=== PATIENT | male | born 1965 | race Caucasian/White ===

== ENCOUNTER → 2019-04-09 14:32 | Outpatient (CLI) | payer OTHER, SELFPAY ==
--- NOTE | 2019-04-09 | DI.RAD.S_ITS ---
PROCEDURE: XR CERVICAL SPINE 4V OR 5V INDICATIONS: neck pain/tingling in arms TECHNIQUE: 7 views of the cervical spine were acquired. COMPARISON: None. FINDINGS: Bones: No fractures or dislocations to the T1 level. No suspicious bony lesions. There is normal range of motion between flexion and extension, with preserved normal bony alignment. Multilevel disc narrowing, most notably at the C5-C6 and C6-C7 levels. Trace multilevel retrolisthesis. Mild multilevel uncovertebral hypertrophy. Soft tissues: Prevertebral soft tissues are normal in thickness. IMPRESSION: Multilevel degenerative change Dictated by: Charles ELLIOTT Interpreted: Jovanny Murrieta MD on 04/09/2019 at 17:42 Approved by: Jovanny Murrieta M.D. on 04/09/2019 at 17:53
== END ==
PROVIDERS: PCP Family Medicine; Visit Provider Family Medicine
DX: M54.2 Cervicalgia (principal); R20.2 Paresthesia of skin; M47.812 Spondylosis without myelopathy or radiculopathy, cervical region
CPT/HCPCS: 72050

== ENCOUNTER → 2019-04-17 12:51 | Outpatient (CLI) | payer OTHER, SELFPAY | PROVIDERS: PCP Family Medicine; Visit Provider Family Medicine | DX: R20.2 Paresthesia of skin (principal) | CPT/HCPCS: 95885; 95886; 95909 ==

== ENCOUNTER 2019-05-12 16:35 | Emergency (ER) | payer OTHER, SELFPAY ==
[2019-05-12 16:41] VITALS: BP 132/88; PULSE 98; RESP 16; TEMP 37.1; O2SAT 99; BMI 28.8
--- NOTE | 2019-05-12 16:45 | DI.RAD.S_ITS ---
PROCEDURE: XR CHEST 1V INDICATIONS: chest pain TECHNIQUE: One view of the chest was acquired. COMPARISON: [facility], , CHEST 2 VIEW, 09/24/2008, 11:31. FINDINGS: Surgical changes and devices: None. Lungs and pleura: Lungs are clear. No pleural effusions or pneumothorax. Mediastinum: Mediastinal contours appear normal. Heart size is normal. Bones and chest wall: No suspicious bony lesions. Overlying soft tissues appear unremarkable. IMPRESSION: No evidence acute pulmonary process. Dictated by: Syd Heck M.D. on 05/12/2019 at 17:13 Approved by: Syd Heck M.D. on 05/12/2019 at 17:13
[2019-05-12 16:50] LABS: Add Manual Diff / Slide Review NO; Basophils Absolute Auto 0 /uL (0-100); Basophils Percent Auto 0.7 % (0-2); Eosinophils Absolute Auto 100 /uL (0-450); Eosinophils Percent Auto 2.4 % (2-4); Hemoglobin 14.8 g/dL (13.5-17.5); Lymphocytes Absolute Auto 1800 /uL (1100-4500); Lymphocytes Percent Auto 31.9 % (25-40); Mean Corpuscular HGB Conc 35.3 % (30-36); Mean Corpuscular Hemoglobin 32.8 PG (26-34); Mean Corpuscular Volume 92.9 fL (80-100); Monocytes Absolute Auto 400 /uL (0-900); Neutrophils Absolute Auto 3300 /uL (1500-7000); Platelet Count 175 X10^3/uL (150-400); Red Blood Cell Count 4.52 X10^6/uL (4.5-5.9); Red Cell Distribution Width 12.6 % (11.6-14.8); White Blood Cell Count 5.8 X10^3/uL (4.5-11.0)
[2019-05-12 17:00] VITALS: BP 127/83; PULSE 74; RESP 20; O2SAT 96
[2019-05-12 17:00] LABS: Prothrombin Time 11.7 SECONDS (10.1-12.7)
[2019-05-12 17:02] LABS: PTT Partial Thromboplastin Tim 32 SECONDS (26.4-36.2)
[2019-05-12 17:08] LABS: Alanine Aminotransferase 25 IU/L (21-72); Albumin 4.3 g/dL (3.5-5.0); Albumin Globulin Ratio 1.4 (1.0-2.8); Alkaline Phosphatase 78 U/L (38-126); Aspartate Aminotransferase 26 IU/L (17-59); BUN Creatinine Ratio 15.6 (6-22); Bilirubin Total 0.6 mg/dL (0.2-1.3); Blood Urea Nitrogen 14 mg/dL (9-20); Calcium 9.3 mg/dL (8.4-10.2); Carbon Dioxide 29 mmol/L (22-32); Chloride 104 mmol/L (98-107); Creatine Kinase 91 U/L (55-170); Estimated Glomerular Filt Rate > 60.0 mL/min (>60); Glucose 115 mg/dL (70-100); HEMOLYSIS < 15 (0-50); Lipase 125 U/L (23-300); Sodium 141 mmol/L (137-145); Total Protein 7.3 g/dL (6.3-8.2)
[2019-05-12 17:20] LABS: Troponin I < 0.012 ng/mL (0.01-0.034)
[2019-05-12 17:30] VITALS: BP 121/83; PULSE 70; RESP 18; O2SAT 96
--- NOTE | 2019-05-12 17:35 | ED.CHESTPAIN ---
HPI - Chest Pain <Vicky Bassett MD - Last Filed: 05/12/19 20:01> General Chief Complaint: Chest Pain Stated Complaint: CHEST PAIN Time Seen by Provider: 05/12/19 16:41 Source: patient Mode of arrival: ambulatory Limitations: no limitations History of Present Illness HPI narrative: Patient comes to the emergency department complaining of an episode of chest pain that lasted approximately 20-30 minutes and started at about 16 10 today. Patient states he had been out on a hike and had been fine, but after coming back to his office, he sat down at his desk and began to have a burning substernal pain. Patient states he did not have any other symptoms with this. No nausea or shortness of breath. He has not had any cough or fever. Patient has no history of cardiac or pulmonary issues. No swelling or pain in his lower extremities. No other complaints at this time. Patient states that the pain started to subside on its own and is now completely gone. Patient has never had any other episodes of chest pain other than heartburn from acid reflux occasionally in the past which does not feel like this. Patient denies any known family history of coronary artery disease in primary family members around his age. He is not a smoker, and does not have diabetes or hypertension. Related Data Home Medications Medication Instructions Recorded Confirmed fluticasone propionate 1 spray INTRANASAL DAILY 05/12/19 05/12/19 Allergies Allergy/AdvReac Type Severity Reaction Status Date / Time No Known Drug Allergies Allergy Verified 05/12/19 16:43 Review of Systems <Vicky Bassett MD - Last Filed: 05/12/19 20:01> Constitutional Denies chills, Denies fever(s), Denies lethargy and Denies weakness Eyes Denies change in vision, Denies eye discharge, Denies irritation and Denies loss of vision ENT Ears, Nose, Mouth, and Throat: Denies change in voice, Denies neck pain and Denies sore throat Cardiovascular Reports chest pain, Denies irregular heart rhythm, Denies lightheadedness, Denies palpitations, Denies dyspnea, Denies dyspnea on exertion and Denies orthopnea Respiratory Denies cough, Denies dyspnea, Denies dyspnea on exertion and Denies wheezing Gastrointestinal Gastrointestinal: Denies abdominal pain, Denies change in bowel habits, Denies diarrhea, Denies nausea and Denies vomiting Genitourinary Denies hematuria, Denies flank pain, Denies urinary incontinence and Denies urinary urgency Musculoskeletal Denies neck pain Integumentary/Breasts Denies pruritus, Denies erythema, Denies rash and Denies wounds Neurologic Denies confusion, Denies loss of vision and Denies weakness Psychiatric Denies anxiety, Denies confusion, Denies depression, Denies homicidal ideation and Denies suicidal ideation Endocrine Denies palpitations Hematologic/Lymphatic Denies easy bruising Allergic/Immunologic Denies wheezing PFSH <Vicky Bassett MD - Last Filed: 05/12/19 20:01> Medical History Healthy adult (Acute) Surgical History No pertinent past surgical history (Acute) Social History Smoking Status: Never smoker Social History Smoking Status: Never smoker Exam <Vicky Bassett MD - Last Filed: 05/12/19 20:01> Initial Vital Signs Initial Vital Signs: Vital Signs Temperature 98.7 F 05/12/19 16:41 Pulse Rate 98 H 05/12/19 16:41 Respiratory Rate 16 05/12/19 16:41 Blood Pressure 132/88 05/12/19 16:41 Pulse Oximetry 99 05/12/19 16:41 Const General: cooperative and well developed Nutritional Appearance: well nourished Orientation: alert, awake, oriented x3 and not confused [facility] Head: normocephalic and atraumatic Ears: external ears normal Nose: external nose normal and No nasal discharge Face and sinus: face symmetric and No dry mucous membranes Mouth: oral mucosae normal and moist mucous membranes Teeth and gingiva: dentition normal Eyes General: appearance normal, both eyes and all related structures Eyelids: eyelids normal Conjunctivae: conjunctivae normal Sclera: sclerae normal Pupils: PERRL EOM: EOM intact bilaterally Neck Neck: normal visual inspection, trachea midline, No lymphadenopathy, No midline deformity and No JVD Lymphatic: No lymphedema Chest Chest: normal inspection of the chest Resp Effort & Inspection: normal respiratory effort, able to speak in complete sentences, no respiratory distress and no use of accessory muscles Auscultation: clear to auscultation bilaterally, no rales, no rhonchi and no wheezes Cardio Rate: regular rate Rhythm: regular rhythm Heart Sounds: no click, no gallops, no murmurs and no rubs Pulses: normal peripheral pulses GI Inspection: non-distended Palpation: soft, no hepatosplenomegaly, No guarding, No pulsatile mass and No tender Auscultation: normal bowel sounds Back/Spine/Pelvis Back: No CVA tenderness Cervical Spine: cervical ROM normal and No pain with cervical ROM Thoracic/Lumbar Spine: thoracic and lumbar spine normal to inspection Skin General: no rashes or lesions noted, No jaundice and No petechiae Neuro General: alert, oriented x3, gait normal and no focal motor deficits Speech: speech normal Extrem General: full ROM, no clubbing, cyanosis or edema, no pedal edema and no calf tenderness Psych Appearance: well kempt Mental Status: mental status grossly normal Attitude: cooperative Thought Content: normal and suicidality Judgment: judgment good <Oumar Jones DO - Last Filed: 05/13/19 00:50> Initial Vital Signs Initial Vital Signs: Vital Signs Temperature 98.7 F 05/12/19 16:41 Pulse Rate 98 H 05/12/19 16:41 Respiratory Rate 16 05/12/19 16:41 Blood Pressure 132/88 05/12/19 16:41 Pulse Oximetry 99 05/12/19 16:41 <Oumar Jones DO - Last Filed: 05/13/19 00:50> HEART Score Heart Score history: Moderately Suspicious Heart Score EKG: Normal Heart Score Age: 45-64 years old Heart Score risk factors: No known risk factors Heart Score troponin: < or = to normal limit Heart Score Total: 2 Course <Vicky Bassett MD - Last Filed: 05/12/19 20:01> Course Narrative: Patient was worked up with labs and EKG, which were unremarkable. Given the recent onset of his pain upon arrival in the emergency department, I did feel he should have a repeat troponin drawn at 3:00 a.m. after onset of pain. The patient was agreeable to this plan. I have signed the patient out to Dr. Oumar Jones at change of shift, pending repeat troponin. Patient is chest pain-free at this time. Orders Ordered: ED Orders 05/12/19 16:39 EKG-12 Lead Stat 05/12/19 16:45 XR chest 1V Stat Complete Blood Count AUTO DIFF Stat Comprehensive Metabolic Panel Stat Lipase Stat Partial Thromboplastin Time Stat Prothrombin Time INR Stat Troponin & CK Cardiac Panel Stat 05/12/19 18:58 Trop I [Troponin I] Stat Vital Signs - 8 hr 05/12/19 17:00 05/12/19 17:30 05/12/19 18:03 Pulse Rate 74 70 72 Respiratory Rate 20 18 16 Blood Pressure Blood Pressure [Right Arm] 127/83 121/83 130/77 Pulse Oximetry 96 96 96 05/12/19 19:31 05/12/19 20:05 Pulse Rate 78 77 Respiratory Rate 21 18 Blood Pressure 131/72 Blood Pressure [Right Arm] 130/77 Pulse Oximetry 99 <Oumar Jones DO - Last Filed: 05/13/19 00:50> Course Narrative: received in sign out from Dr. Bassett. I've performed an independent history and physical. HEART score is 2, patient remains asymptomatic. Repeat troponin negative. Non ischemic EKG. Patient was given return precautions and had questions answered to apparent satisfaction Orders Ordered: ED Orders 05/12/19 16:39 EKG-12 Lead Stat 05/12/19 16:45 XR chest 1V Stat Complete Blood Count AUTO DIFF Stat Comprehensive Metabolic Panel Stat Lipase Stat Partial Thromboplastin Time Stat Prothrombin Time INR Stat Troponin & CK Cardiac Panel Stat 05/12/19 18:58 Trop I [Troponin I] Stat Vital Signs - 8 hr 05/12/19 17:00 05/12/19 17:30 05/12/19 18:03 Pulse Rate 74 70 72 Respiratory Rate 20 18 16 Blood Pressure Blood Pressure [Right Arm] 127/83 121/83 130/77 Pulse Oximetry 96 96 96 05/12/19 19:31 05/12/19 20:05 Pulse Rate 78 77 Respiratory Rate 21 18 Blood Pressure 131/72 Blood Pressure [Right Arm] 130/77 Pulse Oximetry 99 MDM - Chest Pain <Vicky Bassett MD - Last Filed: 05/12/19 20:01> Medical Records Data Attestation: I reviewed the patient's medical records. Lab Data Attestation: I reviewed the patient's lab results. Result diagrams: 05/12/19 16:45 05/12/19 16:45 Lab Results 05/12/19 05/12/19 05/12/19 Range/Units 16:45 16:45 16:45 WBC 5.8 (4.5-11.0) X10^3/uL RBC 4.52 (4.5-5.9) X10^6/uL Hgb 14.8 (13.5-17.5) g/dL Hct 42.0 (41-53) % MCV 92.9 (80-100) fL MCH 32.8 (26-34) PG MCHC 35.3 (30-36) % RDW 12.6 (11.6-14.8) % Plt Count 175 (150-400) X10^3/uL Neut % (Auto) 58.0 (50-75) % Lymph % (Auto) 31.9 (25-40) % [place] % (Auto) 7.0 (3-14) % Eos % (Auto) 2.4 (2-4) % Baso % (Auto) 0.7 (0-2) % Neut # (Auto) 3300 (9135-9521) /uL Lymph # (Auto) 1800 (6167-4473) /uL [place] # (Auto) 400 (0-900) /uL Eos # (Auto) 100 (0-450) /uL Baso # (Auto) 0 (0-100) /uL PT 11.7 (10.1-12.7) SECONDS INR 1.0 (0.9-1.3) APTT 32 (26.4-36.2) SECONDS Sodium 141 (137-145) mmol/L Potassium 4.0 (3.4-5.1) mmol/L Chloride 104 (98-107) mmol/L Carbon Dioxide 29 (22-32) mmol/L BUN 14 (9-20) mg/dL Creatinine 0.90 (0.66-1.25) mg/dL Estimated GFR > 60.0 (>60) mL/min BUN/Creatinine Ratio 15.6 (6-22) Glucose 115 H (70-100) mg/dL Calcium 9.3 (8.4-10.2) mg/dL Total Bilirubin 0.6 (0.2-1.3) mg/dL AST 26 (17-59) IU/L ALT 25 (21-72) IU/L Alkaline Phosphatase 78 (38-126) U/L Total Creatine Kinase 91 (55-170) U/L CK-MB (CK-2) TNP CK-MB (CK-2) Rel Index TNP Troponin I < 0.012 (0.01-0.034) ng/mL Total Protein 7.3 (6.3-8.2) g/dL Albumin 4.3 (3.5-5.0) g/dL Globulin 3.0 (1.7-4.1) g/dL Albumin/Globulin Ratio 1.4 (1.0-2.8) Lipase 125 (23-300) U/L 05/12/19 Range/Units 18:58 WBC (4.5-11.0) X10^3/uL RBC (4.5-5.9) X10^6/uL Hgb (13.5-17.5) g/dL Hct (41-53) % MCV (80-100) fL MCH (26-34) PG MCHC (30-36) % RDW (11.6-14.8) % Plt Count (150-400) X10^3/uL Neut % (Auto) (50-75) % Lymph % (Auto) (25-40) % [place] % (Auto) (3-14) % Eos % (Auto) (2-4) % Baso % (Auto) (0-2) % Neut # (Auto) (2839-9854) /uL Lymph # (Auto) (6111-1917) /uL [place] # (Auto) (0-900) /uL Eos # (Auto) (0-450) /uL Baso # (Auto) (0-100) /uL PT (10.1-12.7) SECONDS INR (0.9-1.3) APTT (26.4-36.2) SECONDS Sodium (137-145) mmol/L Potassium (3.4-5.1) mmol/L Chloride (98-107) mmol/L Carbon Dioxide (22-32) mmol/L BUN (9-20) mg/dL Creatinine (0.66-1.25) mg/dL Estimated GFR (>60) mL/min BUN/Creatinine Ratio (6-22) Glucose (70-100) mg/dL Calcium (8.4-10.2) mg/dL Total Bilirubin (0.2-1.3) mg/dL AST (17-59) IU/L ALT (21-72) IU/L Alkaline Phosphatase (38-126) U/L Total Creatine Kinase (55-170) U/L CK-MB (CK-2) CK-MB (CK-2) Rel Index Troponin I < 0.012 (0.01-0.034) ng/mL Total Protein (6.3-8.2) g/dL Albumin (3.5-5.0) g/dL Globulin (1.7-4.1) g/dL Albumin/Globulin Ratio (1.0-2.8) Lipase (23-300) U/L Imaging Data Chest x-ray: Radiologist's impression: [address] [id number] XRay Report Signed Patient: Zainab Ellis JMR#: [id number] : 1965Acct:[id number] Age/Sex: 53 / MDate of Service: 05/12/19 Loc: ED Accession Number: [id number] Procedure: XR chest 1V Ordering Provider: Vicky Bassett MD PROCEDURE: XR CHEST 1V INDICATIONS: chest pain TECHNIQUE: One view of the chest was acquired. COMPARISON: [facility], , CHEST 2 VIEW, 09/24/2008, 11:31. FINDINGS: Surgical changes and devices: None. Lungs and pleura: Lungs are clear. No pleural effusions or pneumothorax. Mediastinum: Mediastinal contours appear normal. Heart size is normal. Bones and chest wall: No suspicious bony lesions. Overlying soft tissues appear unremarkable. IMPRESSION: No evidence acute pulmonary process. Dictated by: Syd Heck M.D. on 05/12/2019 at 17:13 Approved by: Syd Heck M.D. on 05/12/2019 at 17:13 ECG Data Attestation: I personally reviewed and interpreted this ECG as follows: (See below) Interpretation: Twelve lead EKG performed May 12 2019 at 4:39 p.m., as follows: Regular ventricular rhythm with a rate of 84 beats per minute MT interval 169 milliseconds QRS duration 97 millisecond QTC interval 391 milliseconds No ectopy Pettigrew normal No significant ST T wave changes Interpretation: Normal sinus rhythm; no sense acute ischemia; normal EKG as interpreted by ED MD. <Oumar Jones, - Last Filed: 05/13/19 00:50> Lab Data Lab Results 05/12/19 05/12/19 05/12/19 Range/Units 16:45 16:45 16:45 WBC 5.8 (4.5-11.0) X10^3/uL RBC 4.52 (4.5-5.9) X10^6/uL Hgb 14.8 (13.5-17.5) g/dL Hct 42.0 (41-53) % MCV 92.9 (80-100) fL MCH 32.8 (26-34) PG MCHC 35.3 (30-36) % RDW 12.6 (11.6-14.8) % Plt Count 175 (150-400) X10^3/uL Neut % (Auto) 58.0 (50-75) % Lymph % (Auto) 31.9 (25-40) % [place] % (Auto) 7.0 (3-14) % Eos % (Auto) 2.4 (2-4) % Baso % (Auto) 0.7 (0-2) % Neut # (Auto) 3300 (7981-0571) /uL Lymph # (Auto) 1800 (6342-8836) /uL [place] # (Auto) 400 (0-900) /uL Eos # (Auto) 100 (0-450) /uL Baso # (Auto) 0 (0-100) /uL PT 11.7 (10.1-12.7) SECONDS INR 1.0 (0.9-1.3) APTT 32 (26.4-36.2) SECONDS Sodium 141 (137-145) mmol/L Potassium 4.0 (3.4-5.1) mmol/L Chloride 104 (98-107) mmol/L Carbon Dioxide 29 (22-32) mmol/L BUN 14 (9-20) mg/dL Creatinine 0.90 (0.66-1.25) mg/dL Estimated GFR > 60.0 (>60) mL/min BUN/Creatinine Ratio 15.6 (6-22) Glucose 115 H (70-100) mg/dL Calcium 9.3 (8.4-10.2) mg/dL Total Bilirubin 0.6 (0.2-1.3) mg/dL AST 26 (17-59) IU/L ALT 25 (21-72) IU/L Alkaline Phosphatase 78 (38-126) U/L Total Creatine Kinase 91 (55-170) U/L CK-MB (CK-2) TNP CK-MB (CK-2) Rel Index TNP Troponin I < 0.012 (0.01-0.034) ng/mL Total Protein 7.3 (6.3-8.2) g/dL Albumin 4.3 (3.5-5.0) g/dL Globulin 3.0 (1.7-4.1) g/dL Albumin/Globulin Ratio 1.4 (1.0-2.8) Lipase 125 (23-300) U/L 05/12/19 Range/Units 18:58 WBC (4.5-11.0) X10^3/uL RBC (4.5-5.9) X10^6/uL Hgb (13.5-17.5) g/dL Hct (41-53) % MCV (80-100) fL MCH (26-34) PG MCHC (30-36) % RDW (11.6-14.8) % Plt Count (150-400) X10^3/uL Neut % (Auto) (50-75) % Lymph % (Auto) (25-40) % [place] % (Auto) (3-14) % Eos % (Auto) (2-4) % Baso % (Auto) (0-2) % Neut # (Auto) (8501-8218) /uL Lymph # (Auto) (5613-2130) /uL [place] # (Auto) (0-900) /uL Eos # (Auto) (0-450) /uL Baso # (Auto) (0-100) /uL PT (10.1-12.7) SECONDS INR (0.9-1.3) APTT (26.4-36.2) SECONDS Sodium (137-145) mmol/L Potassium (3.4-5.1) mmol/L Chloride (98-107) mmol/L Carbon Dioxide (22-32) mmol/L BUN (9-20) mg/dL Creatinine (0.66-1.25) mg/dL Estimated GFR (>60) mL/min BUN/Creatinine Ratio (6-22) Glucose (70-100) mg/dL Calcium (8.4-10.2) mg/dL Total Bilirubin (0.2-1.3) mg/dL AST (17-59) IU/L ALT (21-72) IU/L Alkaline Phosphatase (38-126) U/L Total Creatine Kinase (55-170) U/L CK-MB (CK-2) CK-MB (CK-2) Rel Index Troponin I < 0.012 (0.01-0.034) ng/mL Total Protein (6.3-8.2) g/dL Albumin (3.5-5.0) g/dL Globulin (1.7-4.1) g/dL Albumin/Globulin Ratio (1.0-2.8) Lipase (23-300) U/L Discharge Plan Departure Patient Disposition: Home Clinical Impression: Atypical chest pain Discharge Date/Time: 05/12/19 20:07 Interventions: ED Discharge Assessment Last Done: 05/12/19 20:05 Instructions: DI for Atypical Chest Pain Activity Restrictions/Additional Instructions: *You have been diagnosed with [atypical chest pain, heart attack considered but thought unlikely given normal lab tests and EKG] *What to do: *Take medications as directed: Baby aspirin daily *Follow up with your primary care provider in 2-3 days, call for an appointment. Let them know you were seen in the Emergency Department and that we ask that you be seen in follow up *Return to ER if you should have any new, worsening or concerning symptoms, such as [worsening chest pain, particularly with exertion or that which starts at rest, sweating for no apparent reason, nausea, vomiting or other bothersome symptoms] Prescriptions: No Action fluticasone propionate 50 mcg/actuation spray,suspension 1 spray intranasal DAILY RF: 0 Referrals: Vinny Eng MD [Primary Care Provider] -
--- NOTE | 2019-05-12 17:41 | ED_ITS ---
HPI - Chest Pain <Vicky Bassett MD - Last Filed: 05/12/19 20:01> General Chief Complaint: Chest Pain Stated Complaint: CHEST PAIN Time Seen by Provider: 05/12/19 16:41 Source: patient Mode of arrival: ambulatory Limitations: no limitations History of Present Illness HPI narrative: Patient comes to the emergency department complaining of an episode of chest pain that lasted approximately 20-30 minutes and started at about 16 10 today. Patient states he had been out on a hike and had been fine, but after coming back to his office, he sat down at his desk and began to have a burning substernal pain. Patient states he did not have any other symptoms with this. No nausea or shortness of breath. He has not had any cough or fever. Patient has no history of cardiac or pulmonary issues. No swelling or pain in his lower extremities. No other complaints at this time. Patient states that the pain started to subside on its own and is now completely gone. Patient has never had any other episodes of chest pain other than heartburn from acid reflux occasionally in the past which does not feel like this. Patient denies any known family history of coronary artery disease in primary family members around his age. He is not a smoker, and does not have diabetes or hypertension. Related Data Home Medications Medication Instructions Recorded Confirmed fluticasone propionate 1 spray INTRANASAL DAILY 05/12/19 05/12/19 Allergies Allergy/AdvReac Type Severity Reaction Status Date / Time No Known Drug Allergies Allergy Verified 05/12/19 16:43 Review of Systems <Vicky Bassett MD - Last Filed: 05/12/19 20:01> Constitutional Denies chills, Denies fever(s), Denies lethargy and Denies weakness Eyes Denies change in vision, Denies eye discharge, Denies irritation and Denies loss of vision ENT Ears, Nose, Mouth, and Throat: Denies change in voice, Denies neck pain and Denies sore throat Cardiovascular Reports chest pain, Denies irregular heart rhythm, Denies lightheadedness, Denies palpitations, Denies dyspnea, Denies dyspnea on exertion and Denies orthopnea Respiratory Denies cough, Denies dyspnea, Denies dyspnea on exertion and Denies wheezing Gastrointestinal Gastrointestinal: Denies abdominal pain, Denies change in bowel habits, Denies diarrhea, Denies nausea and Denies vomiting Genitourinary Denies hematuria, Denies flank pain, Denies urinary incontinence and Denies urinary urgency Musculoskeletal Denies neck pain Integumentary/Breasts Denies pruritus, Denies erythema, Denies rash and Denies wounds Neurologic Denies confusion, Denies loss of vision and Denies weakness Psychiatric Denies anxiety, Denies confusion, Denies depression, Denies homicidal ideation and Denies suicidal ideation Endocrine Denies palpitations Hematologic/Lymphatic Denies easy bruising Allergic/Immunologic Denies wheezing PFSH <Vicky Bassett MD - Last Filed: 05/12/19 20:01> Medical History Healthy adult (Acute) Surgical History No pertinent past surgical history (Acute) Social History Smoking Status: Never smoker Social History Smoking Status: Never smoker Exam <Vicky Bassett MD - Last Filed: 05/12/19 20:01> Initial Vital Signs Initial Vital Signs: Vital Signs Temperature 98.7 F 05/12/19 16:41 Pulse Rate 98 H 05/12/19 16:41 Respiratory Rate 16 05/12/19 16:41 Blood Pressure 132/88 05/12/19 16:41 Pulse Oximetry 99 05/12/19 16:41 Const General: cooperative and well developed Nutritional Appearance: well nourished Orientation: alert, awake, oriented x3 and not confused [facility] Head: normocephalic and atraumatic Ears: external ears normal Nose: external nose normal and No nasal discharge Face and sinus: face symmetric and No dry mucous membranes Mouth: oral mucosae normal and moist mucous membranes Teeth and gingiva: dentition normal Eyes General: appearance normal, both eyes and all related structures Eyelids: eyelids normal Conjunctivae: conjunctivae normal Sclera: sclerae normal Pupils: PERRL EOM: EOM intact bilaterally Neck Neck: normal visual inspection, trachea midline, No lymphadenopathy, No midline deformity and No JVD Lymphatic: No lymphedema Chest Chest: normal inspection of the chest Resp Effort & Inspection: normal respiratory effort, able to speak in complete sentences, no respiratory distress and no use of accessory muscles Auscultation: clear to auscultation bilaterally, no rales, no rhonchi and no whe ezes Cardio Rate: regular rate Rhythm: regular rhythm Heart Sounds: no click, no gallops, no murmurs and no rubs Pulses: normal peripheral pulses GI Inspection: non-distended Palpation: soft, no hepatosplenomegaly, No guarding, No pulsatile mass and No tender Auscultation: normal bowel sounds Back/Spine/Pelvis Back: No CVA tenderness Cervical Spine: cervical ROM normal and No pain with cervical ROM Thoracic/Lumbar Spine: thoracic and lumbar spine normal to inspection Skin General: no rashes or lesions noted, No jaundice and No petechiae Neuro General: alert, oriented x3, gait normal and no focal motor deficits Speech: speech normal Extrem General: full ROM, no clubbing, cyanosis or edema, no pedal edema and no calf tenderness Psych Appearance: well kempt Mental Status: mental status grossly normal Attitude: cooperative Thought Content: normal and suicidality Judgment: judgment good <Oumar Jones DO - Last Filed: 05/13/19 00:50> Initial Vital Signs Initial Vital Signs: Vital Signs Temperature 98.7 F 05/12/19 16:41 Pulse Rate 98 H 05/12/19 16:41 Respiratory Rate 16 05/12/19 16:41 Blood Pressure 132/88 05/12/19 16:41 Pulse Oximetry 99 05/12/19 16:41 <Oumar Jones DO - Last Filed: 05/13/19 00:50> HEART Score Heart Score history: Moderately Suspicious Heart Score EKG: Normal Heart Score Age: 45-64 years old Heart Score risk factors: No known risk factors Heart Score troponin: < or = to normal limit Heart Score Total: 2 Course <Vicky Bassett MD - Last Filed: 05/12/19 20:01> Course Narrative: Patient was worked up with labs and EKG, which were unremarkab le. Given the recent onset of his pain upon arrival in the emergency department, I did feel he should have a repeat troponin drawn at 3:00 a.m. after onset of pain. The patient was agreeable to this plan. I have signed the patient out to Dr. Oumar Jones at change of shift, pending repeat troponin. Patient is chest pain-free at this time. Orders Ordered: ED Orders 05/12/19 16:39 EKG-12 Lead Stat 05/12/19 16:45 XR chest 1V Stat Complete Blood Count AUTO DIFF Stat Comprehensive Metabolic Panel Stat Lipase Stat Partial Thromboplastin Time Stat Prothrombin Time INR Stat Troponin & CK Cardiac Panel Stat 05/12/19 18:58 Trop I [Troponin I] Stat Vital Signs - 8 hr 05/12/19 17:00 05/12/19 17:30 05/12/19 18:03 Pulse Rate 74 70 72 Respiratory Rate 20 18 16 Blood Pressure Blood Pressure [Right Arm] 127/83 121/83 130/77 Pulse Oximetry 96 96 96 05/12/19 19:31 05/12/19 20:05 Pulse Rate 78 77 Respiratory Rate 21 18 Blood Pressure 131/72 Blood Pressure [Right Arm] 130/77 Pulse Oximetry 99 <Oumar Jones DO - Last Filed: 05/13/19 00:50> Course Narrative: received in sign out from Dr. Bassett. I've performed an independent history and physical. HEART score is 2, patient remains asymptomatic. Repeat troponin negative. Non ischemic EKG. Patient was given return precautions and had questions answered to apparent satisfaction Orders Ordered: ED Orders 05/12/19 16:39 EKG-12 Lead Stat 05/12/19 16:45 XR chest 1V Stat Complete Blood Count AUTO DIFF Stat Comprehensive Metabolic Panel Stat Lipase Stat Partial Thromboplastin Time Stat Prothrombin Time INR Stat Troponin & CK Cardiac Panel Stat 05/12/19 18:58 Trop I [Troponin I] Stat Vital Signs - 8 hr 05/12/19 17:00 05/12/19 17:30 05/12/19 18:03 Pulse Rate 74 70 72 Respiratory Rate 20 18 16 Blood Pressure Blood Pressure [Right Arm] 127/83 121/83 130/77 Pulse Oximetry 96 96 96 05/12/19 19:31 05/12/19 20:05 Pulse Rate 78 77 Respiratory Rate 21 18 Blood Pressure 131/72 Blood Pressure [Right Arm] 130/77 Pulse Oximetry 99 MDM - Chest Pain <Vicky Bassett MD - Last Filed: 05/12/19 20:01> Medical Records Data Attestation: I reviewed the patient's medical records. Lab Data Attestation: I reviewed the patient's lab results. Result diagrams: 05/12/19 16:45 05/12/19 16:45 Lab Results 05/12/19 05/12/1905/12/19 Range/Units 16:45 16:45 16:45 WBC 5.8 (4.5-11.0) X10^3/uL RBC 4.52 (4.5-5.9) X10^6/uL Hgb 14.8 (13.5-17.5) g/dL Hct 42.0 (41-53) % MCV 92.9 (80-100) fL MCH 32.8 (26-34) PG MCHC 35.3 (30-36) % RDW 12.6 (11.6-14.8) % Plt Count 175 (150-400) X10^3/uL Neut % (Auto) 58.0 (50-75) % Lymph % (Auto) 31.9 (25-40) % Dundy % (Auto) 7.0 (3-14) % Eos % (Auto) 2.4 (2-4) % Baso % (Auto) 0.7 (0-2) % Neut # (Auto) 3300 (8806-1635) /uL Lymph # (Auto) 1800 (9611-5524) /uL Dundy # (Auto) 400 (0-900) /uL Eos # (Auto) 100 (0-450) /uL Baso # (Auto) 0 (0-100) /uL PT 11.7 (10.1-12.7) SECONDS INR 1.0 (0.9-1.3) APTT 32 (26.4-36.2) SECONDS Sodium 141 (137-145) mmol/L Potassium 4.0 (3.4-5.1) mmol/L Chloride 104 (98-107) mmol/L Carbon Dioxide 29 (22-32) mmol/L BUN 14 (9-20) mg/dL Creatinine 0.90 (0.66-1.25) mg/dL Estimated GFR > 60.0 (>60) mL/min BUN/Creatinine Ratio 15.6 (6-22) Glucose 115 H (70-100) mg/dL Calcium 9.3 (8.4-10.2) mg/dL Total Bilirubin 0.6 (0.2-1.3) mg/dL AST 26 (17-59) IU/L ALT 25 (21-72) IU/L Alkaline Phosphatase 78 (38-126) U/L Total Creatine Kinase 91 (55-170) U/L CK-MB (CK-2) TNP CK-MB (CK-2) Rel Index TNP Troponin I < 0.012 (0.01-0.034) ng/mL Total Protein 7.3 (6.3-8.2) g/dL Albumin 4.3 (3.5-5.0) g/dL Globulin 3.0 (1.7-4.1) g/dL Albumin/Globulin Ratio 1.4 (1.0-2.8) Lipase 125 (23-300) U/L 05/12/19 Range/Units 18:58 WBC (4.5-11.0) X10^3/uL RBC (4.5-5.9) X10^6/uL Hgb (13.5-17.5) g/dL Hct (41-53) % MCV (80-100) fL MCH (26-34) PG MCHC (30-36) % RDW (11.6-14.8) % Plt Count (150-400) X10^3/uL Neut % (Auto) (50-75) % Lymph % (Auto) (25-40) % Dundy % (Auto) (3-14) % Eos % (Auto) (2-4) % Baso % (Auto) (0-2) % Neut # (Auto) (3761-3663) /uL Lymph # (Auto) (6536-8723) /uL Dundy # (Auto) (0-900) /uL Eos # (Auto) (0-450) /uL Baso # (Auto) (0-100) /uL PT (10.1-12.7) SECONDS INR (0.9-1.3) APTT (26.4-36.2) SECONDS Sodium (137-145) mmol/L Potassium (3.4-5.1) mmol/L Chloride (98-107) mmol/L Carbon Dioxide (22-32) mmol/L BUN (9-20) mg/dL Creatinine (0.66-1.25) mg/dL Estimated GFR (>60) mL/min BUN/Creatinine Ratio (6-22) Glucose (70-100) mg/dL Calcium (8.4-10.2) mg/dL Total Bilirubin (0.2-1.3) mg/dL AST (17-59) IU/L ALT (21-72) IU/L Alkaline Phosphatase (38-126) U/L Total Creatine Kinase (55-170) U/L CK-MB (CK-2) CK-MB (CK-2) Rel Index Troponin I < 0.012 (0.01-0.034) ng/mL Total Protein (6.3-8.2) g/dL Albumin (3.5-5.0) g/dL Globulin (1.7-4.1) g/dL Albumin/Globulin Ratio (1.0-2.8) Lipase (23-300) U/L Imaging Data Chest x-ray: Radiologist's impression: [address] [address] XRay Report Signed Patient: Zainab Ellis JMR#: [id number] : 1965Acct:[id number] Age/Sex: 53 / MDate of Service: 05/12/19 Loc: ED Accession Number: [id number] Procedure: XR chest 1V Ordering Provider: Vicky Bassett MD PROCEDURE: XR CHEST 1V INDICATIONS: chest pain TECHNIQUE: One view of the chest was acquired. COMPARISON: [facility], , CHEST 2 VIEW, 09/24/2008, 11:31. FINDINGS: Surgical changes and devices: None. Lungs and pleura: Lungs are clear. No pleural effusions or pneumothorax. Mediastinum: Mediastinal contours appear normal. Heart size is normal. Bones and chest wall: No suspicious bony lesions. Overlying soft tissues appear unremarkable. IMPRESSION: No evidence acute pulmonary process. Dictated by: Syd Heck M.D. on 05/12/2019 at 17:13 Approved by: Syd Heck M.D. on 05/12/2019 at 17:13 ECG Data Attestation: I personally reviewed and interpreted this ECG as follows: (See below) Interpretation: Twelve lead EKG performed May 12 2019 at 4:39 p.m., as follows: Regular ventricular rhythm with a rate of 84 beats per minute [place] interval 169 milliseconds QRS duration 97 millisecond QTC interval 391 milliseconds No ectopy [place] normal No significant ST T wave changes Interpretation: Normal sinus rhythm; no sense acute ischemia; normal EKG as interpreted by ED . <Oumar [place], DO - Last Filed: 05/13/19 00:50> Lab Data Lab Results 05/12/19 05/12/19 05/12/19 Range/Units 16:45 16:45 16:45 WBC 5.8 (4.5-11.0) X10^3/uL RBC 4.52 (4.5-5.9) X10^6/uL Hgb 14.8 (13.5-17.5) g/dL Hct 42.0 (41-53) % MCV 92.9 (80-100) fL MCH 32.8 (26-34) PG MCHC 35.3 (30-36) % RDW 12.6 (11.6-14.8) % Plt Count 175 (150-400) X10^3/uL Neut % (Auto) 58.0 (50-75) % Lymph % (Auto) 31.9 (25-40) % Dundy % (Auto) 7.0 (3-14) % Eos % (Auto) 2.4 (2-4) % Baso % (Auto) 0.7 (0-2) % Neut # (Auto) 3300 (2362-2058) /uL Lymph # (Auto) 1800 (9488-1305) /uL Dundy # (Auto) 400 (0-900) /uL Eos # (Auto) 100 (0-450) /uL Baso # (Auto) 0 (0-100) /uL PT 11.7 (10.1-12.7) SECONDS INR 1.0 (0.9-1.3) APTT 32 (26.4-36.2) SECONDS Sodium 141 (137-145) mmol/L Potassium 4.0 (3.4-5.1) mmol/L Chloride 104 (98-107) mmol/L Carbon Dioxide 29 (22-32) mmol/L BUN 14 (9-20) mg/dL Creatinine 0.90 (0.66-1.25) mg/dL Estimated GFR > 60.0 (>60) mL/min BUN/Creatinine Ratio 15.6 (6-22) Glucose 115 H (70-100) mg/dL Calcium 9.3 (8.4-10.2) mg/dL Total Bilirubin 0.6 (0.2-1.3) mg/dL AST 26 (17-59) IU/L ALT 25 (21-72) IU/L Alkaline Phosphatase 78 (38-126) U/L Total Creatine Kinase 91 (55-170) U/L CK-MB (CK-2) TNP CK-MB (CK-2) Rel Index TNP Troponin I < 0.012 (0.01-0.034) ng/mL Total Protein 7.3 (6.3-8.2) g/dL Albumin 4.3 (3.5-5.0) g/dL Globulin 3.0 (1.7-4.1) g/dL Albumin/Globulin Ratio 1.4 (1.0-2.8) Lipase 125 (23-300) U/L 05/12/19 Range/Units 18:58 WBC (4.5-11.0) X10^3/uL RBC (4.5-5.9) X10^6/uL Hgb (13.5-17.5) g/dL Hct (41-53) % MCV (80-100) fL MCH (26-34) PG MCHC (30-36) % RDW (11.6-14.8) % Plt Count (150-400) X10^3/uL Neut % (Auto) (50-75) % Lymph % (Auto) (25-40) % Dundy % (Auto) (3-14) % Eos % (Auto) (2-4) % Baso % (Auto) (0-2) % Neut # (Auto) (7677-8375) /uL Lymph # (Auto) (1161-4044) /uL Dundy # (Auto) (0-900) /uL Eos # (Auto) (0-450) /uL Baso # (Auto) (0-100) /uL PT (10.1-12.7) SECONDS INR (0.9-1.3) APTT (26.4-36.2) SECONDS Sodium (137-145) mmol/L Potassium (3.4-5.1) mmol/L Chloride (98-107) mmol/L Carbon Dioxide (22-32) mmol/L BUN (9-20) mg/dL Creatinine (0.66-1.25) mg/dL Estimated GFR (>60) mL/min BUN/Creatinine Ratio (6-22) Glucose (70-100) mg/dL Calcium (8.4-10.2) mg/dL Total Bilirubin (0.2-1.3) mg/dL AST (17-59) IU/L ALT (21-72) IU/L Alkaline Phosphatase (38-126) U/L Total Creatine Kinase (55-170) U/L CK-MB (CK-2) CK-MB (CK-2) Rel Index Troponin I < 0.012 (0.01-0.034) ng/mL Total Protein (6.3-8.2) g/dL Albumin (3.5-5.0) g/dL Globulin (1.7-4.1) g/dL Albumin/Globulin Ratio (1.0-2.8) Lipase (23-300) U/L Discharge Plan Departure Patient Disposition: Home Clinical Impression: Atypical chest pain Discharge Date/Time: 05/12/19 20:07 Interventions: ED Discharge Assessment Last Done: 05/12/19 20:05 Instructions: DI for Atypical Chest Pain Activity Restrictions/Additional Instructions: *You have been diagnosed with [atypical chest pain, heart attack considered but thought unlikely given normal lab tests and EKG] *What to do: *Take medications as directed: Baby aspirin daily *Follow up with your primary care provider in 2-3 days, call for an appointment. Let them know you were seen in the Emergency Department and that we ask that you be seen in follow up *Return to ER if you should have any new, worsening or concerning symptoms, such as [worsening chest pain, particularly with exertion or that which starts at rest, sweating for no apparent reason, nausea, vomiting or other bothersome symptoms] Prescriptions: No Action fluticasone propionate 50 mcg/actuation spray,suspension 1 spray intranasal DAILY RF: 0 Referrals: Vinny Eng MD [Primary Care Provider] -
[2019-05-12 18:03] VITALS: BP 130/77; PULSE 72; RESP 16; O2SAT 96
--- NOTE | 2019-05-12 19:12 | PC.NURSE ---
report given to Sea VILLALOBOS
--- NOTE | 2019-05-12 19:17 | PC.NURSE ---
Safe handoff from Courtney VILLALOBOS. Pt resting on stretcher. Denies needs at this time.
[2019-05-12 19:25] LABS: Troponin I < 0.012 ng/mL (0.01-0.034)
[2019-05-12 19:31] VITALS: BP 130/77; PULSE 78; RESP 21
[2019-05-12 20:05] VITALS: BP 131/72; PULSE 77; RESP 18; O2SAT 99
== END 2019-05-12 20:07 | disposition home or self-care (01) ==
PROVIDERS: Emergency Medicine; Emergency Provider Emergency Medicine; PCP Family Medicine
DX: R07.89 Other chest pain (principal)
CPT/HCPCS: 36415; 36591; 71045; 80053; 82550; 83690; 84484; 85025; 85610; 85730; 93005; 93041; 99284; 99285

== ENCOUNTER → 2019-06-11 07:42 | Outpatient (CLI) | payer OTHER, SELFPAY ==
--- NOTE | 2019-06-11 08:49 | PM.TREADMILL ---
Cardiac Stress Test Report Referral & Results Date Patient Seen: 06/11/19 Time Patient Seen: 08:30 Requesting provider: Vinny Eng Indication: Chest pain Rest ECG: NSR Procedure Note: Today following both written and verbal informed consent the patient was exercised according to a standard Ernst protocol patient went for a total of 10 minutes 21 seconds achieving a maximum heart rate of 171 maximum systolic blood pressure of 180. This is approximately 12.8 METs. Exercise was terminated at this point because of fatigue. Patient was also given Cardiolite through a previously started Hep-Lock IV by the nuclear medicine technologist approximately 1 minute prior to the cessation of exercise. No signs or symptoms of angina. No change in rhythm. Significant artifact in precordial leads despite troubleshooting. ABBE 0% on active scale. Impression: Low probability for ischemia. Will await perfusion imaging. Please note: Actual ECG tracings can be found in the PACS system.
--- NOTE | 2019-06-12 18:53 | DI.NM.S_ITS ---
DATE OF SERVICE: 06/11/2019 PROCEDURE: Exercise perfusion study. INDICATIONS: Intense chest pain with sweating required ER visit. Exercise perfusion study was scheduled for CAD diagnosis and risk stratification. RADIOPHARMACEUTICAL: 26.8 mCi technetium-99m Myoview IV was injected at stress and 25.5 mCi technetium-99m Myoview IV was injected at rest. CARDIAC STRESS: Patient underwent exercise perfusion study under the supervision of an attending staff. He walked on Ernst protocol for 10 minutes 21 seconds achieved 102% of target heart rate, normal blood pressure response. No anginal symptoms. Baseline EKG revealed sinus rhythm. Stress EKG did not reveal any convincing ischemic changes. There were no significant arrhythmias. Patient achieved 12.8 METs of workload. Functional aerobic impairment 0% on active scale. RAW DATA: There was normal myocardial uptake. There was increased of diaphragmatic activity. GATED STUDY: Stress LV ejection fraction 71% and resting LV ejection fraction 69%. No obvious wall motion abnormalities. Resting end-diastolic volume is 116 mL. No transient ischemic dilatation. TID ratio is 0.97, which is within normal limits. Lung/heart ratio is 0.03, which is within normal limits. MYOCARDIAL PERFUSION SCAN: Stress supine, resting supine images revealed small- sized mildly decreased perfusion of inferior wall and inferior apex which got resolved during prone images suggestive of diaphragmatic tissue attenuation artifact. CONCLUSION: I'll call this study a normal myocardial perfusion study with evidence of diaphragmatic tissue attenuation artifact which got resolved during prone images. Patient walked on Ernst protocol for 10 minutes 21 seconds and achieved 12.8 METs of workload. No obvious ischemic EKG changes. No significant arrhythmias. Left ventricular (LV) function is preserved. Overall, this is a low-risk myocardial perfusion scan. Zainab Ellis - GENERAL SERVICE OFFICER/mira/ab doc#: [id number]/job#: [id number] dd: 06/12/2019 17:13:00 dt: 06/12/2019 18:43:00 DICTATING /COPIES TO: Abe Coley MD COPIES MNE: [facility]
== END ==
PROVIDERS: PCP Family Medicine; Visit Provider Family Medicine
DX: R07.9 Chest pain, unspecified (principal)
CPT/HCPCS: 78452; 93016; 93017; 93018; A9502

== ENCOUNTER → 2021-09-23 08:32 | Outpatient (CLI) | payer OTHER, SELFPAY ==
[2021-09-23 10:23] LABS: Add Manual Diff / Slide Review NO; Basophils Absolute Auto 0 /uL (0-100); Eosinophils Absolute Auto 100 /uL (0-450); Hematocrit 41.8 % (41-53); Hemoglobin 14.7 g/dL (13.5-17.5); Lymphocytes Absolute Auto 1700 /uL (1100-4500); Lymphocytes Percent Auto 35.1 % (25-40); Mean Corpuscular HGB Conc 35.2 % (30-36); Mean Corpuscular Hemoglobin 33.3 PG (26-34); Mean Corpuscular Volume 94.6 fL (80-100); Monocytes Absolute Auto 400 /uL (0-900); Neutrophils Absolute Auto 2500 /uL (1500-7000); Neutrophils Percent Auto 51.9 % (50-75); Platelet Count 146 X10^3/uL (150-400); Red Blood Cell Count 4.42 X10^6/uL (4.5-5.9); Red Cell Distribution Width 12.8 % (11.6-14.8); White Blood Cell Count 4.8 X10^3/uL (4.5-11.0)
[2021-09-23 10:46] LABS: Alanine Aminotransferase 109 IU/L (<50); Albumin 3.9 g/dL (3.5-5.0); Albumin Globulin Ratio 1.4 (1.0-2.8); Alkaline Phosphatase 62 U/L (38-126); Aspartate Aminotransferase 58 IU/L (17-59); BUN Creatinine Ratio 17.1 (6-22); Bilirubin Total 0.7 mg/dL (0.2-1.3); Blood Urea Nitrogen 14 mg/dL (9-20); Calcium 9.3 mg/dL (8.4-10.2); Carbon Dioxide 30 mmol/L (22-32); Chloride 106 mmol/L (98-107); Cholesterol 179 mg/dL (140-199); Estimated Glomerular Filt Rate > 60.0 mL/min (>60); Globulin 2.7 g/dL (1.7-4.1); Glucose 80 mg/dL (70-100); HDL Cholesterol 35 mg/dL (40-60); HEMOLYSIS < 15 (0-50); LDL Cholesterol Calculated 114 mg/dL (<100); Potassium 4.2 mmol/L (3.4-5.1); Sodium 141 mmol/L (137-145); Total Protein 6.6 g/dL (6.3-8.2); Triglycerides 148 mg/dL (35-150); VLDL Cholesterol Calculated 30 mg/dL (2-30)
[2021-09-23 11:11] LABS: Thyroid Stimulating Hormone 1.61 uIU/mL (0.47-4.68)
[2021-09-23 11:14] LABS: Prostate Specific Antigen Scrn 1.22 ng/mL (0.1-4.0)
== END ==
PROVIDERS: PCP Family Medicine; Referring Provider Family Medicine; Visit Provider Family Medicine
DX: R03.0 Elevated blood-pressure reading, without diagnosis of hypertension (principal); Z12.5 Encounter for screening for malignant neoplasm of prostate
CPT/HCPCS: 36415; 80053; 80061; 84443; 85025; G0103

== ENCOUNTER → 2022-11-08 16:42 | Outpatient (CLI) | payer OTHER, SELFPAY ==
--- NOTE | 2022-11-08 16:43 | DI.MRI.S_ITS ---
PROCEDURE: MR CERVICAL SPINE WO CON INDICATIONS: Abnormal reflex/weakness TECHNIQUE: Noncontrast sagittal T1 spin echo and T2 fast spin echo, sagittal STIR, foraminal oblique sagittal T2 fast spin echo, and axial gradient echo or T2 fast spin echo through the cervical spine. COMPARISON: None. FINDINGS: Image quality: Excellent. Alignment and Curvature: There is loss of normal cervical lordosis. Roughly 3 mm of retrolisthesis of C3 on C4. 2 mm of retrolisthesis of C5 on C6. Bone Marrow: Marrow demonstrates normal overall signal. Mild reactive signal throughout the endplates of the cervical and upper thoracic spine. Spinal Cord: Visualized spinal cord has normal size . There is mild T2 signal elevation within the left hemicord at the C3-C4 disc space level measuring roughly 4 mm transverse by 2 mm anteroposterior. No cerebellar tonsillar herniation. Paraspinous Soft Tissues: No paravertebral masses. Prevertebral soft tissues are normal in thickness. C2-C3: Congenital canal stenosis. Moderate disc desiccation. Mild diffuse disc bulge with superimposed central protrusion. Mild facet and uncovertebral hypertrophy. Moderate to severe canal stenosis. Minimal anterior cord flattening. Mild bilateral foraminal stenosis. C3-C4: Congenital canal stenosis. Moderate disc desiccation. Moderate diffuse disc bulge with superimposed left paracentral protrusion. Mild facet and uncovertebral hypertrophy bilaterally. Severe canal stenosis. Severe cord flattening. Severe bilateral foraminal stenosis with bilateral C4 nerve root compression. C4-C5: Congenital canal stenosis. Moderate disc desiccation. Mild diffuse disc bulge. Mild facet and uncovertebral hypertrophy bilaterally. Moderate canal stenosis. Severe right and moderate left foraminal stenosis. Right C5 nerve root compression. C5-C6: Congenital canal stenosis. Moderate disc height loss and desiccation. Moderate diffuse disc bulge with superimposed right far lateral broad-based protrusion. Mild facet and uncovertebral hypertrophy. Moderate to severe canal stenosis. Minimal anterior cord flattening. Severe bilateral foraminal stenosis with bilateral C6 nerve root compression. C6-C7: Congenital canal stenosis. Moderate disc height loss and desiccation. Mild diffuse disc bulge. Moderate facet and uncovertebral hypertrophy bilaterally. Moderate canal stenosis. Severe bilateral foraminal stenosis. Bilateral C7 nerve root compression. C7-T1: Congenital canal stenosis. Mild disc height loss and desiccation. Mild diffuse disc bulge. Mild facet and uncovertebral hypertrophy bilaterally. Moderate canal stenosis. Severe bilateral foraminal stenosis. Bilateral C8 nerve root compression. IMPRESSION: 1. Diffuse congenital canal stenosis with superimposed disc and facet disease, as well as uncovertebral hypertrophy. 2. Multilevel canal stenoses, worst at C2-C3, C3-C4, and C5-C6 where there is associated cord flattening. 3. Multilevel foraminal stenoses, worst at C3-C4, C4-C5, C5-C6, C6-C7, and C7-T1 where there is associated intraforaminal nerve root compression. Recommend correlation with clinical symptoms to ascertain relevance of these findings. 4. Small region of high T2 signal intensity within the upper cervical cord as described above, suggestive of a small region of cord injury/gliosis. Dictated by: Moises Guajardo M.D. on 11/09/2022 at 10:45 Transcribed by: ROSS on 11/09/2022 at 10:52 Approved by: Moises Guajardo M.D. on 11/09/2022 at 16:49
== END ==
PROVIDERS: Family Provider Family Medicine; PCP Family Medicine; Referring Provider Family Medicine; Visit Provider Family Medicine
DX: M48.02 Spinal stenosis, cervical region (principal); M50.31 Other cervical disc degeneration, high cervical region; R29.2 Abnormal reflex; R53.1 Weakness
CPT/HCPCS: 72141

== ENCOUNTER → 2024-06-24 11:34 | Outpatient (CLI) | payer OTHER, SELFPAY ==
--- NOTE | 2024-06-24 11:36 | DI.RAD.S_ITS ---
PROCEDURE: XR HAND LT MIN 3V INDICATIONS: Pain in left finger(s) TECHNIQUE: 3 views of the hand(s) acquired. COMPARISON: None. FINDINGS: Bones: No fractures or dislocations. Carpal bones are normally aligned. No suspicious bony lesions. Soft tissues: No suspicious soft tissue calcifications. IMPRESSION: No acute bony abnormality. Approved by: Driss Osborn M.D. on 06/24/2024 at 17:50
== END ==
PROVIDERS: Family Provider Family Medicine; PCP Family Medicine; Referring Provider Family Medicine; Visit Provider Family Medicine
DX: M79.645 Pain in left finger(s) (principal)
CPT/HCPCS: 73130

== ENCOUNTER → 2025-06-22 08:49 | Outpatient (CLI) | payer OTHER, SELFPAY ==
--- NOTE | 2025-06-22 08:50 | DI.MRI.S_ITS ---
PROCEDURE: MR CERVICAL SPINE WO CON INDICATIONS: Cervical neuropathy TECHNIQUE: Noncontrast sagittal T1 spin echo and T2 fast spin echo, sagittal STIR, foraminal oblique sagittal T2 fast spin echo, and axial gradient echo or T2 fast spin echo through the cervical spine. COMPARISON: [facility], MR, MR CERVICAL SPINE WO CON, 11/08/2022, 16:50. FINDINGS: Image quality: Excellent. Alignment and Curvature: Straightening of the normal cervical lordosis. Bone Marrow: Disc prosthesis at C2-C3. Marrow demonstrates normal overall signal. Spinal Cord: Increased T2 signal within the left hemicord at C3-C4, likely myelomalacia. No cerebellar tonsillar herniation. Paraspinous Soft Tissues: No paravertebral masses. Prevertebral soft tissues are normal in thickness. C2-C3: Disc desiccation. Mild facet and uncovertebral arthropathy. Mild central canal stenosis. Mild bilateral neural foraminal stenosis. Stable compared to prior. C3-C4: Facet and uncovertebral arthropathy. Disc prosthesis. [id number] residual central canal stenosis. Severe bilateral neural foraminal stenosis. C4-C5: Disc desiccation and posterior disc osteophyte complex asymmetric to the right. Facet and uncovertebral arthropathy. Mild central canal stenosis. Severe right and moderate left neural foraminal stenosis is stable. C5-C6: Disc desiccation and moderate height loss. Posterior disc osteophyte complex. Facet and uncovertebral arthropathy. Moderate central canal stenosis. Severe bilateral neural foraminal stenosis is stable. C6-C7: Disc desiccation and moderate height loss. Posterior disc osteophyte complex. Facet and uncovertebral arthropathy. Moderate central canal stenosis. Severe bilateral neural foraminal stenosis. Stable compared to prior. C7-T1: Disc desiccation and mild posterior disc osteophyte complex. Facet and uncovertebral arthropathy. Moderate central canal stenosis. Severe bilateral neural foraminal stenosis. IMPRESSION: 1. Multilevel degenerative changes of the cervical spine. Improvement of central canal stenosis at C3-C4 status post disc prosthesis. Otherwise, stable degenerative changes compared to prior. 2. Multilevel moderate central canal stenosis. 3. Severe neural foraminal stenosis bilaterally at C3-C4, on the right at C4-C5 and bilaterally at C5-C6, C6-C7 and C7-T1. Dictated by: Cb Jordan M.D. on 06/22/2025 at 15:13 Approved by: Cb Jordan M.D. on 06/22/2025 at 15:39
== END ==
LOC: MRI 08:49
PROVIDERS: Family Provider Family Medicine; PCP Family Medicine; Referring Provider Family Medicine; Visit Provider Family Medicine
DX: M47.812 Spondylosis without myelopathy or radiculopathy, cervical region (principal); M48.02 Spinal stenosis, cervical region
CPT/HCPCS: 72141

== ENCOUNTER → 2025-07-20 12:15 | Outpatient (CLI) | payer OTHER, SELFPAY ==
--- NOTE | 2025-07-20 12:23 | DI.RAD.S_ITS ---
PROCEDURE: XR CERVICAL SPINE 4V OR 5V INDICATIONS: Spinal stenosis, cervical region TECHNIQUE: 5 views of the cervical spine were acquired. COMPARISON: [facility], CR, XR CERVICAL SPINE 4V OR 5V, 04/09/2019, 14:46. FINDINGS: Bones: No fractures or dislocations to the T1 level. Interval placement of disc spacer at the C3-C4 level. Moderate disc height loss at the C5-C6 and C6-C7 levels with adjacent endplate sclerosis and anterior osteophytosis. Minimal retrolisthesis of C5 on C6 measures 2 mm and is stable on flexion and extension. No suspicious bony lesions. There is moderately diminished range of motion between flexion and extension, with preserved normal bony alignment. Soft tissues: Prevertebral soft tissues are normal in thickness. IMPRESSION: Interval postsurgical change at the C3-C4 level without evidence of acute osseous abnormality. Flexion/extension stable minimal retrolisthesis of C5 on C6 with otherwise moderately limited range of motion. Dictated by: Shlomo Thompson M.D. on 07/21/2025 at 23:22 Approved by: Shlomo Thompson M.D. on 07/21/2025 at 23:25
== END ==
PROVIDERS: Family Provider Family Medicine; PCP Family Medicine; Referring Provider Family Medicine; Visit Provider Neurological Surgery
DX: M48.02 Spinal stenosis, cervical region (principal)
CPT/HCPCS: 72050